=== PATIENT | female | born 1990 | race Caucasian/White ===

== ENCOUNTER 2017-08-18 05:41 | Observation (INO) | payer SELFPAY ==
[2017-08-18] MEDS ORDERED: ONDANSETRON 4 MG/2 ML VIAL ONE (06:26)
[2017-08-18] MEDS ORDERED: OXYTOCIN 10 UNIT/ML ML IV ONE (06:50)
[2017-08-18] MEDS ORDERED: NA CHLORIDE 0.9% 1,000 ML ONE (06:50)
[2017-08-18 06:53] LABS: BUN Blood Urea Nitrogen 7 mg/dL (6-20); Bicarbonate 25 mEq/L (21-31); Glomerular Filtration Rate > 90 mL/min (=/>90); Glucose Level 124 mg/dL (65-120); Potassium 3.4 mEq/L (3.6-5.0); Sodium Level 137 mEq/L (135-145)
[2017-08-18 07:04] LABS: Absolute Lymphocytes (CBC) 0.9 K/uL (0.7-4.9); Absolute Monocytes 0.5 K/uL (0.1-1.3); Absolute Neutrophil 6.5 K/uL (1.8-8.0); Basophils % 0.2 % (0-1.3); Eosinophils % 0.3 % (0-4.4); Hematocrit 25.4 % (36.0-45.0); Lymphocytes % 11.7 % (15.3-44.8); MCH 31.3 pg (27.0-35.0); MCV 90.7 fL (80-100); MPV 9.9 fL (7.6-11.3); Monocytes % 6.6 % (3.3-12.3)
--- NOTE | 2017-08-18 07:10 | EDPHYS ---
Physician Documentation [facility] Name: Teresita Robert Age: 27 yrs Sex: Female : 1990 Arrival Date: 08/18/2017 Time: 05:45 Bed 17 Private MD: ED Physician Sanket De Guzman HPI: 08/18 05:56 This 27 yrs old Other Female presents to ER via EMS with complaints of Vaginal kdr Bleeding, + Preg <12wks. 05:56 The patient presents with vaginal bleeding that is moderate, heavy, with clots, reports kdr using 4 pads or tampons per day, The patient has been using a . 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 - Social history:: Smoking status: Patient/guardian denies using tobacco. ROS: 06:53 Positive for vaginal bleeding, Negative for bladder incontinence, foul smelling kdr urine, vaginal discharge, vaginal itching, menstrual abnormality. 06:53 Constitutional: Negative for fever, chills, and weight loss, Eyes: Negative for injury, pain, redness, and discharge, ENT: Negative for injury, pain, and discharge, Neck: Negative for injury, pain, and swelling, Cardiovascular: Negative for chest pain, palpitations, and edema, Respiratory: Negative for shortness of breath, cough, wheezing, and pleuritic chest pain, Abdomen/GI: Negative for abdominal pain, nausea, vomiting, diarrhea, and constipation, : Negative for injury, bleeding, discharge, and swelling, MS/Extremity: Negative for injury and deformity, Skin: Negative for injury, rash, and discoloration, Neuro: Negative for headache, weakness, numbness, tingling, and seizure activity. Psych: Negative for depression, anxiety, suicide ideation, homicidal ideation, and hallucinations, Allergy/Immunology: Negative for hives, rash, and allergies, Endocrine: Negative for neck swelling, polydipsia, polyuria, polyphagia, and marked weight changes, Hematologic/Lymphatic: Negative for swollen nodes, abnormal bleeding, and unusual bruising. 06:53 Back: Positive for pain at rest, of the lumbar area. Exam: 06:53 Constitutional: This is a well developed, well nourished patient who is awake, alert, kdr and in no acute distress. Head/Face: Normocephalic, atraumatic. Eyes: Pupils equal round and reactive to light, extra-ocular motions intact. Lids and lashes normal. Conjunctiva and sclera are non-icteric and not injected. Cornea within normal limits. Periorbital areas with no swelling, redness, or edema. Neck: Trachea midline, no thyromegaly or masses palpated, and no cervical lymphadenopathy. Supple, full range of motion without nuchal rigidity, or vertebral point tenderness. No Meningismus. Chest/axilla: Normal chest wall appearance and motion. Nontender with no deformity. No lesions are appreciated. Cardiovascular: Regular rate and rhythm with a normal S1 and S2. No gallops, murmurs, or rubs. Normal PMI, no JVD. No pulse deficits. Respiratory: Lungs have equal breath sounds bilaterally, clear to auscultation and percussion. No rales, rhonchi or wheezes noted. No increased work of breathing, no retractions or nasal flaring. Abdomen/GI: Soft, non-tender, with normal bowel sounds. No distension or tympany. No guarding or rebound. No evidence of tenderness throughout. Back: No spinal tenderness. No costovertebral tenderness. Full range of motion. Skin: Warm, dry with normal turgor. Normal color with no rashes, no lesions, and no evidence of cellulitis. MS/ Extremity: Pulses equal, no cyanosis. Neurovascular intact. Full, normal range of motion. Neuro: Awake and alert, GCS 15, oriented to person, place, time, and situation. Cranial nerves II-XII grossly intact. Motor strength 5/5 in all extremities. Sensory grossly intact. Cerebellar exam normal. Normal gait. Psych: Awake, alert, with orientation to person, place and time. Behavior, mood, and affect are within normal limits. 06:53 : CVA tenderness, is absent, Pelvic Exam: External exam: is normal, Speculum exam: moderate bleeding, blood clots in vaginal vault, no tissue in vagina is seen, bimanual exam reveals no cervical motion tenderness, os that is open, an enlarged uterus, gravid uterus, no uterine tenderness. Vital Signs: 05:28 BP 120 / 75; Pulse 97; Resp 20; Temp 98.2(O); Pulse Ox 100% on R/A; Weight 50 kg; ea Height 5 ft. 3 in. (160.02 cm); Pain 7/10; 06:23 BP 103 / 63; Pulse 97; Resp 16; Pulse Ox 100% on R/A; aa1 07:15 BP 96 / 60; Pulse 91; Resp 18; Pulse Ox 100% on R/A; ph 08:34 BP 96 / 64; Pulse 81; Resp 18; Temp 97.8; Pulse Ox 100% on R/A; ph 09:10 BP 98 / 66; Pulse 78; Resp 16; Temp 99.6(TE); Pulse Ox 98% on R/A; ph 05:28 Body Mass Index 19.53 (50.00 kg, 160.02 cm) ea MDM: 06:37 Physician consultation: Dorie Morley MD was called at 06:20, regarding consult, patient's kdr condition, need to come to ED to see patient, Left a message. ED course: Called [facility] US - tech paged directly through radiology by ED [employer] tech at 06:30. ED course: Dr. Morley paged again at 06:30 and did not leave a message. Currently awaiting US. ED course: 40 - call US Dept. No answer. 06:50 Data reviewed: vital signs, nurses notes. Counseling: I had a detailed discussion with kdr the patient and/or guardian regarding: the historical points, exam findings, and any diagnostic results supporting the discharge/admit diagnosis, lab results, radiology results. 07:10 Patient medically screened. kdr 08/18 05:46 Order name: Quantitative Hcg kdr 08/18 05:46 Order name: Abo/rh Typing kdr 08/18 05:46 Order name: Basic Metabolic Panel kdr 08/18 05:46 Order name: CBC with Diff kdr 08/18 06:53 Order name: Basic Metabolic Panel EDMS 08/18 07:00 Order name: ABO/RH typing EDMS 08/18 06:25 Order name: US OB Limited rg2 08/18 07:04 Order name: CBC with Automated Diff EDMS 08/18 07:24 Order name: HCG, Quantitative EDMS 08/18 08:33 Order name: US EDVT 08/18 05:46 Order name: IV Saline Lock; Complete Time: 06:06 kdr 08/18 05:46 Order name: Labs collected and sent; Complete Time: 07:00 kdr 08/18 05:46 Order name: NPO; Complete Time: 06:06 kdr Administered Medications: Discontinued: Pitocin 20 units IV at calculated rate once; Add to one lite of NS and infuse at 20 mUnits/min 06:10 Drug: NS 0.9% 1000 ml Route: IV; Rate: 1 bolus; Site: left antecubital; aa1 06:38 Follow up: IV Status: Completed infusion aa1 06:10 Drug: Zofran 4 mg Route: IVP; Site: left antecubital; ea 07:00 Follow up: Response: No adverse reaction ea 06:39 Drug: Pitocin 20 units Route: IV; Rate: calculated rate; Site: left antecubital; aa1 07:30 Follow up: Response: No adverse reaction; IV Status: Order to discontinue infusion ph 07:01 Drug: METHERgine 0.2 mg Route: IM; Site: right deltoid; aa1 07:45 Follow up: Response: No adverse reaction ph Disposition: 08/18/17 07:10 Hospitalization ordered by Dorie Morley for Observation. Preliminary diagnosis is Threatened . - [facility]. - Status is Observation. ph - Condition is Serious. - Problem is new. - Symptoms have improved. UTI on Admission? No Signatures: Dispatcher [employer] [facility] Nona Koehler Alissa RN RN aa1 Sanket De Guzman MD MD [facility] Kadie Preston RN RN Genny Starkey RN RN ea
--- NOTE | 2017-08-18 07:10 | ER ---
Nurse's Notes [facility] Name: Teresita Robert Age: 27 yrs Sex: Female : 1990 Arrival Date: 08/18/2017 Time: 05:45 Bed 17 Private MD: Diagnosis: Threatened Presentation: 08/18 05:28 Presenting complaint: EMS states: Pt started spotting on Wednesday went to the doctor ea yesterday and was confirmed that she was having a miscarriage, pt reported she is bleeding more than her previous miscarriage. Transition of care: patient was not received from another setting of care. Onset of symptoms was August 18, 2017. Care prior to arrival: Medication(s) given: Normal saline infusion, 500 mL, 20 G to left AC. :28 Method Of Arrival: EMS: [facility] ea : Acuity: ALPA 3 ea Triage Assessment: :28 General: Appears uncomfortable, Behavior is calm, cooperative, appropriate for age. ea Pain: Complains of pain in lower back pain Pain currently is 7 out of 10 on a pain scale. Quality of pain is described as crampy. EENT: No signs and/or symptoms were reported regarding the EENT system. Neuro: Level of Consciousness is awake, alert, obeys commands, Oriented to person, place, time, situation. Cardiovascular: Patient's skin is warm and dry. Respiratory: Airway is patent Respiratory effort is even, unlabored, Respiratory pattern is regular, symmetrical. GI: No signs and/or symptoms were reported involving the gastrointestinal system. : Reports vaginal bleeding that is moderate flow, since Wednesday. Reports she went to her OB at [facility] yesterday and was told she was having a miscarriage. Derm: Skin is dry, Skin is pale, Skin temperature is warm. 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 - Social history:: Smoking status: Patient/guardian denies using tobacco. Screenin:05 Abuse screen: Denies threats or abuse. Nutritional screening: No deficits noted. ea Tuberculosis screening: No symptoms or risk factors identified. Fall Risk None identified. Assessment: 06:08 Obstetrical Assessment: General assessment: awake and alert, skin warm and dry, ea respirations even and unlabored, Pt reports vaginal bleed since Wednesday, went to doctor yesterday and was confirmed patient is having a miscarriage. . 06:08 Reassessment: Patient and/or family updated on plan of care and expected duration. Pain ea level reassessed. Patient is alert, oriented x 3, equal unlabored respirations, skin warm/dry/pink. 07:15 Reassessment: Patient appears in no apparent distress at this time. Patient and/or ph family updated on plan of care and expected duration. Pain level reassessed. Patient is alert, oriented x 3, equal unlabored respirations, skin warm/dry/pink. Pitocin drip d/c per provider order. Pt requesting to change brief, states, " I feel like I passed a big clot." Large blood clot noted and shown to ERP. Pt resting quietly at this time, awaiting room assignment, family at bedside. 08:15 Reassessment: Patient appears in no apparent distress at this time. No changes from ph previously documented assessment. Patient and/or family updated on plan of care and expected duration. Pain level reassessed. Patient is alert, oriented x 3, equal unlabored respirations, skin warm/dry/pink. 08:42 Reassessment: Patient appears in no apparent distress at this time. Patient and/or ph family updated on plan of care and expected duration. Pain level reassessed. Patient is alert, oriented x 3, equal unlabored respirations, skin warm/dry/pink. Report called to VIDAL Beck in L\\T\\D. 09:00 Reassessment: Patient appears in no apparent distress at this time. Patient and/or ph family updated on plan of care and expected duration. Pain level reassessed. Patient is alert, oriented x 3, equal unlabored respirations, skin warm/dry/pink. Dr Alvarez at bedside for pelvic exam, POC sent to lab, pt reports that pain is improving, waiting to be taken to L\\T\\D. Vital Signs: 05:28 BP 120 / 75; Pulse 97; Resp 20; Temp 98.2(O); Pulse Ox 100% on R/A; Weight 50 kg; ea Height 5 ft. 3 in. (160.02 cm); Pain 7/10; 06:23 BP 103 / 63; Pulse 97; Resp 16; Pulse Ox 100% on R/A; aa1 07:15 BP 96 / 60; Pulse 91; Resp 18; Pulse Ox 100% on R/A; ph 08:34 BP 96 / 64; Pulse 81; Resp 18; Temp 97.8; Pulse Ox 100% on R/A; ph 09:10 BP 98 / 66; Pulse 78; Resp 16; Temp 99.6(TE); Pulse Ox 98% on R/A; ph 05:28 Body Mass Index 19.53 (50.00 kg, 160.02 cm) ea ED Course: 05:28 Maintain EMS IV. Dressing intact. Good blood return noted. Site clean \\T\\ dry. Gauge \\T\\ ea site: 20G to left AC. 05:40 Patient has correct armband on for positive identification. Bed in low position. Call ea light in reach. Side rails up X2. 05:45 Patient arrived in ED. ea 05:46 Sanket De Guzman MD is Attending Physician. kdr 05:53 Triage completed. ea 06:06 Arm band placed on right wrist. ea 06:13 Genny Starkey, RN is Primary Nurse. ea 06:17 Assist provider with pelvic exam: Set up pelvic tray. Performed by Sanket De Guzman MD ea Patient tolerated well. 06:20 first call for ultra sound spoke with Kaelyn in x-ray at around 0620 to call and have them rg2 come straight to er 17 for patient bleeding. 06:32 Kaelyn called and asked if I could put the order in [employer] so that it will be in the rg2 machine. 06:41 called X-ray again Deniz answered that they would go look for her. Kaelyn called back rg2 saying she was here and already gone. [employer] tech came in through the front hallway to the room. 06:56 Ultrasound completed. Patient tolerated well. aa4 07:09 Dorie Morley MD is Hospitalizing Provider. kdr 09:00 Assist provider with pelvic exam: Set up pelvic tray. Performed by Dorie Morley MD ph Specimens sent to lab. POC passed, sent to pathology, Patient tolerated well. 09:26 Patient admitted, IV remains in place. ph Administered Medications: Discontinued: Pitocin 20 units IV at calculated rate once; Add to one lite of NS and infuse at 20 mUnits/min 06:10 Drug: NS 0.9% 1000 ml Route: IV; Rate: 1 bolus; Site: left antecubital; aa1 06:38 Follow up: IV Status: Completed infusion aa1 06:10 Drug: Zofran 4 mg Route: IVP; Site: left antecubital; ea 07:00 Follow up: Response: No adverse reaction ea 06:39 Drug: Pitocin 20 units Route: IV; Rate: calculated rate; Site: left antecubital; aa1 07:30 Follow up: Response: No adverse reaction; IV Status: Order to discontinue infusion ph 07:01 Drug: METHERgine 0.2 mg Route: IM; Site: right deltoid; aa1 07:45 Follow up: Response: No adverse reaction ph Outcome: 07:10 Decision to Hospitalize by Provider. kdr 09:26 Admitted to L \\T\\ D, accompanied by tech, via stretcher, with chart, Report called to mulugeta Beck RN 09:26 Condition: stable 09:26 Instructed on the need for admit. 09:28 Patient left the ED. ph Signatures: Michelle Membreno rg2 Giulia Juarez RN RN aa1 Sanket De Guzman MD MD kdr Vee Draper RN RN Gina Gifford aa4 Kadie Preston RN RN ph Genny Starkey RN RN ea Corrections: (The following items were deleted from the chart) 09:27 09:00 Assist provider with pelvic exam: Set up pelvic tray. Performed by Dorie Morley MD ph Specimens sent to lab. Patient tolerated well. ph
[2017-08-18] MEDS ORDERED: METHYLERGONOVINE 0.2MG/ML AMP IM ONE (07:15)
[2017-08-18] MEDS ORDERED: ACETAMINOPHEN 500 MG TAB PO PRN (07:48)
[2017-08-18] MEDS ORDERED: ONDANSETRON 4 MG/2 ML VIAL IV PRN (07:48)
[2017-08-18] MEDS ORDERED: NA CHLORIDE 0.9% 1,000 ML IV SCH (08:00)
--- NOTE | 2017-08-18 08:32 | RAD REPORT ---
EXAM DESCRIPTION: US - Transvaginal OB - 08/18/2017 6:58 am CLINICAL HISTORY: Vaginal bleeding. COMPARISON: None. FINDINGS: A gestational sac is seen in the lower uterine segment. Within the sac there is no evidenc e of IUP. The mean sac diameter is 22 mm correlating to 7 weeks 0 days gestational age. Both ovaries are normal in size, shape and echotexture with normal Doppler blood flow identified. IMPRESSION: Findings are most compatible with inevitable .
[2017-08-18] MEDS ORDERED: Oxycodone HCl/Acetaminophen 1 TAB TAB PO PRN (09:19)
[2017-08-18] MEDS ORDERED: KETOROLAC 30 MG/ML INJ IM PRN (09:19)
[2017-08-18] MEDS ORDERED: ONDANSETRON 4 MG (ODT) TAB PO PRN (09:19)
[2017-08-18] MEDS ORDERED: IBUPROFEN 400 MG TAB PO PRN (09:19)
[2017-08-18] MEDS ORDERED: miSOPROStol 100 MCG TAB PO ONE (09:20)
[2017-08-18] MEDS ORDERED: METHYLERGONOVINE 0.2 MG TAB PO PRN (09:22)
[2017-08-18] MEDS ORDERED: FERROUS SULFATE 325 MG TAB PO ONE (10:20)
[2017-08-18] MEDS ORDERED: DOXYCYCLINE 100 MG CAP PO SCH (21:00)
[2017-08-18] MEDS ORDERED: FERROUS SULFATE 325 MG TAB PO SCH (21:00)
--- NOTE | 2017-08-18 21:40 | HP ---
Date of Admission: 08/18/2017 History Of Present Illness: Teresita is a 27-year-old, 4, para 1-0-2-1, LMP on June 09, 2017, who presents at 10 weeks gestation with likely incomplete . The patient obtained care at [facility] where she had her last . She followed up with them on Wednesday, at which time , she was having some minimal spotting. Then on Wednesday, the spotting began to become heavier and she was having cramping as well. Therefore, she presented to our emergency department at 5:30 this morning. On evaluation, she was noted to be having heavy vaginal bleeding with blood clots. She was told by her doctor at the [facility] that she would most likely miscarry since there was no heartbeat seen on the ultrasound performed in their office on Wednesday. She denies fever. No chills. Pain now is tolerable. When she first presented , it was a 7/10, she states now it is 4/10. Past Medical History: Negative. 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 Normal Pap as per patient. Past Ob History: She has had 2 prior miscarriages. No D and C performed both in first trimester. Following the miscarriages, she then had a full-term delivered 2 years ago vaginally without any complications. Past Surgical History: Includes appendectomy. Social History: She denies tobacco, alcohol, or drug use. Review Of Symptoms: Constitutional: No fever, chills, or weight loss. Eyes: No visual changes. ENT: Negative for any nasal discharge or throat pain. Cardiovascular: She denies any chest pain, palpitations, or edema. Respiratory: She denies shortness of breath or cough. Abdomen: She denies nausea, vomiting, or diarrhea. She is complaining of some cramping. : She denies any dysuria or hematuria. 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 Neurologic: She denies any headache or weakness. Psychiatric: No depression anxiety or suicidal ideation. Physical Examination: Vital Signs: Her blood pressure 98/66, pulse of 70, respirations 16, temperature is 99.6, SpO2 is 98% on room air. BMI is 19. Head and Neck: Normocephalic, atraumatic. Heart: Regular rate and rhythm. Respiratory: Symmetric nonlabored breathing. Abdomen: Soft and nontender. No guarding. No rigidity. Extremities: Bilateral lower extremities, no clubbing, cyanosis, or edema. Vaginal Exam: Normal external female genitalia. Speculum introduced into the vagina and blood clots noted in the vaginal vault. The blood clots were removed and then at the cervical opening products of conception were visualized. A ring clamp was utilized to remove the products of conception and they were placed in a container to be sent for pathology. The cervix was then noted to be closed. Bimanual Exam: The uterus is nontender. Skin: Feels warm. Assessment And Plan: Teresita is a 27-year-old, 4, para 1-0-2-1, with a complete . Plan is to observe the patient for some few more hours to assess her pain control and to make sure she has no longer bleeding. We will also place her on oral antibiotics to help prevent any endometritis. NAVA Voice ID: [id number] MTDD
== END 2017-08-18 13:15 | disposition home or self-care (01) ==
LOC: ER 05:41 → ERHOLD 07:11 → 2ND-WC 08:52
PROVIDERS: ADMIT Student in an Organized Health Care Education/Training Program; ATTEND Student in an Organized Health Care Education/Training Program
DX: O03.9 Complete or unspecified spontaneous abortion without complication (principal)
CPT/HCPCS: 36415; 76817; 80048; 84702; 85025; 86900; 86901; 88305; 96361; 96365; 96372; 96375; 99285; G0378; J2210; J2405; J2590; J7030